=== PATIENT | male | born 1970 | race Caucasian/White ===

== ENCOUNTER → 2020-07-02 11:40 | Outpatient (BNVA) | payer MEDICAID, SELFPAY | PROVIDERS: Family Provider Nurse Practitioner Family; PCP Nurse Practitioner Family; Visit Provider Family Medicine | DX: I10 Essential (primary) hypertension (principal); N52.9 Male erectile dysfunction, unspecified; B19.20 Unspecified viral hepatitis C without hepatic coma | CPT/HCPCS: 80053; 80061; 83036; 85025 ==

== ENCOUNTER → 2020-07-15 08:00 | Outpatient (BNVA) | payer MEDICAID, SELFPAY | PROVIDERS: Family Provider Nurse Practitioner Family; PCP Nurse Practitioner Family; Visit Provider Psychiatry & Neurology Psychiatry | DX: F43.12 Post-traumatic stress disorder, chronic (principal); F31.9 Bipolar disorder, unspecified | CPT/HCPCS: 99213 ==

== ENCOUNTER → 2020-10-22 07:47 | Outpatient (BNVA) | payer MEDICAID, SELFPAY | PROVIDERS: Family Provider Nurse Practitioner Family; PCP Family Medicine Adult Medicine; Visit Provider Psychiatry & Neurology Psychiatry | DX: F31.9 Bipolar disorder, unspecified (principal); F43.12 Post-traumatic stress disorder, chronic | CPT/HCPCS: 99213 ==

== ENCOUNTER 2021-11-03 13:05 | Emergency (ER) | payer BC, MEDICAID, SELFPAY ==
[2021-11-03 13:40] VITALS: BP 163/116; PULSE 100; RESP 16; O2SAT 98; BMI 30.9
--- NOTE | 2021-11-03 13:45 | ED_ITS ---
HPI - Skin/Abscess/Foreign Bdy General: Chief complaint: Skin/Abscess/Foreign Body Stated complaint: Sore on hand and back of head Time Seen by Provider: 11/03/21 13:45 Source: patient Mode of arrival: ambulatory Limitations: no limitations History of Present Illness: HPI narrative: Patient is 51-year-old male who presents to ED today with multiple sores to his bilateral hands and upper extremities that he began noticing a few days ago. He states it started with one sore that appeared as a small pimple and states when he picked at it he then began noticing sores to other areas. He denies a history of staph or MRSA. No new environmental or chemical exposures. MD complaint: lesion Tetanus up to date: yes Location: LUE and RUE Severity: mild Relieving factors: none Exacerbating factors: none Context: none Associated symptoms: Deny chills, fever(s), nausea or vomiting Review of Systems Const: Denies: fever(s), chills, body aches, fatigue or malaise Card: Denies: chest pain Resp: Denies: dyspnea GI: Denies: abdominal pain, nausea or vomiting Musc: Denies: neck pain, back pain, extremity pain or joint pain Skin/Breast: Reports: other (skin sores) Neuro: Denies: numbness in extremities, weakness in extremities or sensory changes [facility] ED PFSH: Medical History (Updated 11/03/21 @ 13:46 by CODY Langston) Hep C w/o coma, chronic Hepatitis C Hypertension Neuropathy Spinal curvature Surgical History H/O knee surgery Micro surg- Left knee Social History Smoking and tobacco status: current every day smoker cigarettes Packs smoked per day: 0.5 Alcohol intake: current Alcohol intake frequency: holidays/special occasions only Household members: significant other Current occupational status: unemployed Physical Exam Const: COMMON NORMALS: no acute distress, average body habitus, patient oriented x3, no limitations and alert GENERAL APPEARANCE: cooperative Resp: COMMON NORMALS: normal respiratory effort and clear to auscultation bilaterally AUSCULTATION: clear to auscultation bilaterally Cardio: COMMON NORMALS: regular rate and regular rhythm RATE: regular rate RHYTHM: regular rhythm Neuro: COMMON NORMALS: patient oriented x3, moves all extremities, no focal motor deficits and no sensory deficits noted SENSORIUM/ORIENTATION: Yes alert Skin: NARRATIVE SKIN EXAM: pt has multiple 1cm early staph appearing abscesses to bilateral UEs and one to scalp; none draining or requiring I&D; no significant cellulitis Course Vital Signs: Vital signs: Vital Signs Pulse Rate 100 11/03/21 13:40 Respiratory Rate 16 11/03/21 13:40 Blood Pressure 163/116 11/03/21 13:40 Pulse Oximetry 98 11/03/21 13:40 Discharge Plan Discharge Patient Disposition: Home Clinical Impression: Staph skin infection Condition: Stable Prescriptions: New Bactrim DS 800-160 mg tablet 2 tab PO BID 7 Days Qty: 28 RF: 0 No Action cyclobenzaprine 10 mg tablet 10 mg PO BID RF: 0 amlodipine [Norvasc] 10 mg tablet 10 mg PO DAILY Qty: 90 RF: 0 propranolol 20 mg tablet 10 mg PO BID PRN (Reason: anxiety) Qty: 60 RF: 2 sildenafil 100 mg tablet 100 mg PO DAILY PRN (Reason: sexual activity) Qty: 20 RF: 12 quetiapine [Seroquel] 50 mg tablet 50 mg PO BID Qty: 60 RF: 2 quetiapine [Seroquel] 400 mg tablet 600 mg PO .HS Qty: 45 RF: 2 prazosin 5 mg capsule 10 mg PO .HS Qty: 30 RF: 2 hydroxyzine HCl 25 mg tablet 25 mg PO BID PRN (Reason: anxiety) Qty: 60 RF: 2 fluoxetine [Prozac] 20 mg capsule 20 mg PO QDAY Qty: 30 RF: 2 Discharge Orders: Discharge ED (Routine); Ordered 11/03/21 Ordered By: Nancy Seals Referrals: Sloan Vieyra MD [Primary Care Provider] - Patient Instructions: Staphylococcus Aureus Infection Coding Level of Care Code 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
== END 2021-11-03 14:18 | disposition home or self-care (01) ==
PROVIDERS: Emergency Provider Physician Assistant; PCP Family Medicine Adult Medicine
DX: L08.9 Local infection of the skin and subcutaneous tissue, unspecified (principal); B95.8 Unspecified staphylococcus as the cause of diseases classified elsewhere; B19.20 Unspecified viral hepatitis C without hepatic coma; I10 Essential (primary) hypertension; F17.210 Nicotine dependence, cigarettes, uncomplicated
CPT/HCPCS: 99282

== ENCOUNTER 2022-07-09 19:03 | Emergency (ER) | payer BC, MEDICAID, SELFPAY ==
[2022-07-09 19:16] VITALS: BP 163/114; PULSE 95; RESP 16; TEMP 36.7; O2SAT 96; BMI 30.8
--- NOTE | 2022-07-09 19:25 | W.ED.EXTPRO ---
HPI - Extremity Problem General: Chief complaint: Extremity Injury, Upper Stated complaint: bite and swelling to Right hand Time Seen by Provider: 07/09/22 19:25 History of Present Illness: 52-year-old male patient comes in with a wound to the right dorsal thumb at the DIP joint that is red and tender. 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 Patient appears nontoxic. Patient appears in mild pain. Patient does not recall his last tetanus shot. Patient reports noticing wound to 3 days ago with increasing redness and tenderness today. Associated symptoms: Deny fever(s) Review of Systems Const: Denies: fever(s) Skin/Breast: Reports: erythema and new lesions [facility] ED PFSH: Medical History (Updated 07/09/22 @ 19:33 by DANE Schrader) Hep C w/o coma, chronic Hepatitis C Hypertension Neuropathy Spinal curvature Surgical History H/O knee surgery Micro surg- Left knee Social History Smoking and tobacco status: current every day smoker cigarettes Packs smoked per day: 0.5 Alcohol intake: current Alcohol intake frequency: holidays/special occasions only Household members: significant other Current occupational status: unemployed Physical Exam Const: COMMON NORMALS: alert HENMT: COMMON NORMALS: normocephalic HEAD & SCALP: normocephalic Neck/C-Spine: COMMON NORMALS: full ROM Resp: COMMON NORMALS: normal respiratory effort and clear to auscultation bilaterally AUSCULTATION: clear to auscultation bilaterally Cardio: COMMON NORMALS: regular rate RATE: regular rate Extremity: RIGHT UPPER EXTREMITY: Yes hand & digits (Superficial abrasion noted to the dorsal right thumb with redness) Right hand and digits: Yes inspection, Yes palpation and Yes ROM exam Neuro: SENSORIUM/ORIENTATION: Yes alert Skin: LESIONS: lesion noted (Right thumb 3 cm erythema) Course Vital Signs: Vital signs: Vital Signs Temperature 98.0 F 07/09/22 19:16 Pulse Rate 95 07/09/22 19:16 Respiratory Rate 16 07/09/22 19:16 Blood Pressure 163/114 07/09/22 19:16 Pulse Oximetry 96 07/09/22 19:16 Oxygen Delivery Pr thod 07/09/22 19:16 MDM - Extremity (Nontraumatic) Medical Decision Making Patient comes in for a wound to the dorsal right thumb with about a 2 to 3 cm area of redness surrounding it. Patient has good range of motion of the thumb. Dorsal cap refill is intact. Wound is tender to touch. Differential diagnosis includes wound infection, local reaction to insect bite, tenosynovitis. No sign of severe illness or injury is noted. Patient appears to have a infected wound. Recommend antibiotics as directed and follow-up with primary care for further evaluation and treatment. Discharge Plan Discharge Patient Disposition: Home Clinical Impression: Abrasion of hand with infection Qualifiers: Encounter type: initial encounter Laterality: right Qualified Code(s): S60.511A - Abrasion of right hand, initial encounter Condition: Stable Prescriptions: New clindamycin HCl 300 mg capsule 300 mg PO QID 7 Days Qty: 28 0RF mupirocin 2 % ointment 1 applic topical BID Qty: 22 0RF No Action cyclobenzaprine 10 mg tablet 10 mg PO BID amlodipine [Norvasc] 10 mg tablet 10 mg PO DAILY Qty: 90 0RF propranolol 20 mg tablet 10 mg PO BID PRN (Reason: anxiety) Qty: 60 2RF sildenafil 100 mg tablet 100 mg PO DAILY PRN (Reason: sexual activity) Qty: 20 12RF Rx Instructions: 1 hour before intercourse on empty stomach. NO NITROGLYCERIN! quetiapine [Seroquel] 50 mg tablet 50 mg PO BID Qty: 60 2RF quetiapine [Seroquel] 400 mg tablet 600 mg PO .HS Qty: 45 2RF prazosin 5 mg capsule 10 mg PO .HS Qty: 30 2RF hydroxyzine HCl 25 mg tablet 25 mg PO BID PRN (Reason: anxiety) Qty: 60 2RF fluoxetine [Prozac] 20 mg capsule 20 mg PO QDAY Qty: 30 2RF Discharge Orders: Discharge ED (Routine); Ordered 07/09/22 Ordered By: Chencho Anne Referrals: Sloan Vieyra MD [Primary Care Provider] - Discharge Diet: Usual diet Discharge Activity: Increase activity as tolerated Patient Instructions: Wound Infection (ED) Activity Restrictions/Additional Instructions: Wash wound twice daily and apply antibiotic ointment until healed. You may use antibiotic ointment to new wounds also. Take oral antibiotic 1 capsule 4 times a day while awake for 7 days. Follow-up with primary care as needed. Return to ER for new concerns or worsening condition. 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
[2022-07-09] MEDS: clindamycin 150 mg Capsule 300 MG PO (19:40)
[2022-07-09] MEDS: tetanus-dipt-pertussis 0.5 mL SDV IM (19:40)
[2022-07-09 20:06] VITALS: BP 159/99; PULSE 92; RESP 18; TEMP 36.6; O2SAT 97
== END 2022-07-09 20:07 | disposition home or self-care (01) ==
LOC: ER 19:39
PROVIDERS: Emergency Provider Nurse Practitioner Family; PCP Family Medicine Adult Medicine
DX: S60.511A Abrasion of right hand, initial encounter (principal); Z86.19 Personal history of other infectious and parasitic diseases; I10 Essential (primary) hypertension; F17.210 Nicotine dependence, cigarettes, uncomplicated; Z23 Encounter for immunization; W22.8XXA Striking against or struck by other objects, initial encounter
CPT/HCPCS: 90471; 90715; 99283

== ENCOUNTER 2022-08-07 19:18 | Emergency (ER) | payer BC, MEDICAID, SELFPAY ==
--- NOTE | 2022-08-07 19:23 | XRR_ITS ---
PROCEDURE INFORMATION: Exam: XR Right Hand Exam date and time: 08/07/2022 7:45 PM Age: 52 years old Clinical indication: Injury or trauma; Fall; Blunt trauma (contusions or hematomas); Hand; Right; Prior surgery TECHNIQUE: Imaging protocol: Radiologic exam of the Right hand. Views: 3 or more views. COMPARISON: No relevant prior studies available. 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 Alignment is normal. No acute fracture. There is a screw in the base of the 5th metacarpal. Soft tissues: Visible soft tissues are unremarkable. XR/XR hand RT min 3V* [id number] IMPRESSION: 1. No acute findings. 2. Incidental findings above.
[2022-08-07 20:00] VITALS: BMI 33.9
--- NOTE | 2022-08-07 20:21 | W.ED.UPPEXIN ---
HPI - Extremity Injury (Upper) General: Stated Complaint: right hand pain Time Seen by Provider: 08/07/22 20:11 Source: patient Mode of arrival: ambulatory Limitations: no limitations History of Present Illness: 52-year-old male states he has had some erythema noted to his right hand today denies any pain denies any injury denies any fever states he is noted some warmth to touch limited to the palm. Associated symptoms: Denies neck pain Review of Systems Const: Denies: fever(s), chills, body aches or change in appetite Eyes: Denies: blurry vision or eye discomfort ENMT: Denies: throat pain or dental pain Card: Denies: chest pain Resp: Denies: dyspnea GI: Denies: abdominal pain, nausea, vomiting or diarrhea : Denies: dysuria Musc: Denies: neck pain or back pain Skin/Breast: Denies: rash Neuro: Denies: headache(s) Psych: Denies: depression Sina/Lymph: Denies: easy bruising All/Imm: Denies: urticaria PFSH ED PFSH: Medical History (Updated 08/07/22 @ 20:22 by Oniel Allen MD) Hep C w/o coma, chronic Hepatitis C Hypertension Neuropathy Spinal curvature Surgical History H/O knee surgery Micro surg- Left knee Social History Smoking and tobacco status: current every day smoker cigarettes Packs smoked per day: 0.5 Alcohol intake: current Alcohol intake frequency: holidays/special occasions only Household members: significant other Current occupational status: unemployed Physical Exam Const: COMMON NORMALS: no acute distress, patient oriented x3 and healthy appearing HENMT: COMMON NORMALS: normocephalic and atraumatic HEAD & SCALP: normocephalic and atraumatic Eye: COMMON NORMALS: Equal, round and reactive pupils present and EOMs intact bilaterally PUPIL: Yes Equal, round and reactive pupils present Neck/C-Spine: COMMON NORMALS: full ROM and supple Chest: COMMONS NORMALS: normal inspection of the chest and normal palpation of entire chest wall Resp: COMMON NORMALS: normal respiratory effort, No retractions, No use of accessory muscles and clear to auscultation bilaterally AUSCULTATION: clear to auscultation bilaterally Cardio: COMMON NORMALS: regular rate, regular rhythm and No murmurs present (Cardio) RATE: regular rate RHYTHM: regular rhythm GI: COMMON NORMALS: Normal to inspection, nondistended, normoactive bowel sounds present, Soft to palpation, non-tender and no masses PALPATION: Yes Soft to palpation Extremity: COMMON NORMALS: full ROM NARRATIVE EXTREMITY EXAM: Slight erythema to the palm of the left hand no abscess no pain in the fingers Neuro: COMMON NORMALS: patient oriented x3, moves all extremities and no focal motor deficits Psych: COMMON NORMALS: mental status grossly normal, Normal thought process present and cooperative THOUGHT PROCESS: Normal thought process present Skin: COMMON NORMALS: no rashes or lesions noted and no wounds GENERAL SKIN EXAM: no rashes or lesions noted MDM - Extremity Injury (Upper) Medical Decision Making Patient presents with slight cellulitis to his hand no signs of tensor synovitis x-ray is normal we will start him on antibiotic he is to follow-up PCP and return if worsening. Lab Data Radiology Impressions Hand X-Ray 08/07/22 19:23 IMPRESSION: 1. No acute findings. 2. Incidental findings above. Discharge Plan Discharge Patient Disposition: Home Clinical Impression: Cellulitis Qualifiers: Site of cellulitis: extremity Site of cellulitis of extremity: upper extremity Laterality: right Qualified Code(s): L03.113 - Cellulitis of right upper limb Condition: Stable Prescriptions: New clindamycin HCl 300 mg capsule 300 mg PO TID 7 Days Qty: 21 0RF No Action cyclobenzaprine 10 mg tablet 10 mg PO BID amlodipine [Norvasc] 10 mg tablet 10 mg PO DAILY Qty: 90 0RF propranolol 20 mg tablet 10 mg PO BID PRN (Reason: anxiety) Qty: 60 2RF sildenafil 100 mg tablet 100 mg PO DAILY PRN (Reason: sexual activity) Qty: 20 12RF Rx Instructions: 1 hour before intercourse on empty stomach. NO NITROGLYCERIN! quetiapine [Seroquel] 50 mg tablet 50 mg PO BID Qty: 60 2RF quetiapine [Seroquel] 400 mg tablet 600 mg PO .HS Qty: 45 2RF prazosin 5 mg capsule 10 mg PO .HS Qty: 30 2RF hydroxyzine HCl 25 mg tablet 25 mg PO BID PRN (Reason: anxiety) Qty: 60 2RF fluoxetine [Prozac] 20 mg capsule 20 mg PO QDAY Qty: 30 2RF mupirocin 2 % ointment 1 applic topical BID Qty: 22 0RF Discharge Orders: Discharge ED (Routine); Ordered 08/07/22 Ordered By: Oniel Allen Referrals: Kasia Zelaya APN [Primary Care Provider] - 1-3 days Discharge Diet: Advance as tolerated Discharge Activity: Resume usual activity Patient Instructions: Cellulitis (ED) Coding Level of Care Code 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
[2022-08-07] MEDS: clindamycin 150 mg Capsule 300 MG PO (20:36)
[2022-08-07 21:01] VITALS: BP 142/90; PULSE 90; RESP 16; O2SAT 95
== END 2022-08-07 20:39 | disposition home or self-care (01) ==
PROVIDERS: Emergency Provider Emergency Medicine; PCP Nurse Practitioner Family
DX: L03.113 Cellulitis of right upper limb (principal); I10 Essential (primary) hypertension; F17.210 Nicotine dependence, cigarettes, uncomplicated
CPT/HCPCS: 73130; 99283

== ENCOUNTER 2023-02-02 12:29 | Emergency (ER) | payer BC, MEDICAID, SELFPAY ==
[2023-02-02 12:42] VITALS: BP 163/116; PULSE 95; RESP 20; TEMP 36.9; O2SAT 100
--- NOTE | 2023-02-02 13:01 | CTR_ITS ---
PROCEDURE INFORMATION: Exam: CT Abdomen And Pelvis With Contrast Exam date and time: 02/02/2023 1:56 PM Age: 52 years old Clinical indication: Abdominal pain; Localized; Right lower quadrant (rlq); Additional info: Rlq pain TECHNIQUE: Imaging protocol: Computed tomography of the abdomen and pelvis with contrast. Radiation optimization: All CT scans at this facility use at least one of these dose optimization techniques: automated exposure control; mA and/or kV adjustment per patient size (includes targeted exams where dose is matched to clinical indication); or iterative reconstruction. Contrast material: OMNI 350; Contrast volume: 100 ml; Contrast route: INTRAVENOUS (IV); REPORTING DATA: Count of CT and Cardiac NM exams in prior 12 months: This patient has received 0 known CTs and 0 known cardiac nuclear medicine studies in the 12 months prior to the current study. COMPARISON: CR XR abdomen min 2V [id number] 05/11/2016 4:18 PM RADIATION DOSE METRICS: Total DLP (mGy-cm): 1037 FINDINGS: Lungs: A lobulated 9.8 x 7.6 mm noncalcified pulmonary nodule is noted in the medial basilar segment of the left lower lobe (LOC 40). A 4.7 mm noncalcified pulmonary nodule is noted in the anterior basilar segment of the right lower lobe (LOC 20). Liver: Normal. No mass. Gallbladder and bile ducts: No extrahepatic biliary ductal dilatation or calculus. Gallbladder luminal distention is present measuring 5.5 cm. No intraluminal calculus identified. No wall thickening or pericholecystic fluid. Pancreas: Unremarkable pancreas. Spleen: The spleen demonstrates several small calcifications consistent with healed granulomatous disease. Adrenal glands: Normal. No mass. Kidneys and ureters: Bilateral renal upper pole cortical scarring. Left renal 21 mm benign cyst. Stomach and bowel: Moderately increased stool noted in the ascending colon. No evidence of bowel obstruction. Appendix: The vermiform appendix is normal. Intraperitoneal space: No free air. No significant fluid collection. Vasculature: Calcified phleboliths are present in the lower pelvis bilaterally. Mild aortic atherosclerotic calcification without aneurysm. The iliac arteries show mild bilateral atherosclerotic calcifications without evidence of aneurysm. Lymph nodes: No enlarged lymph nodes. Urinary bladder: Unremarkable as visualized. Reproductive: Unremarkable as visualized. Bones/joints: Unremarkable. No acute fracture. Soft tissues: A tiny paraumbilical hernia containing only abdominal fat is noted. CT/CT abdomen pelvis w con* [id number] IMPRESSION: 1. Moderate right abdominal colonic constipation. 2. Bilateral renal upper pole cortical scarring. 3. Left renal benign cyst. No follow-up imaging is recommended. 4. Distended gallbladder. Gallbladder sonography may be helpful if clinically indicated. 5. Noncalcified left lower lobe pulmonary nodule. Pulmonary neoplasia not excluded. Comparison with prior studies, if available, recommended. Three-month followup chest CT, PET/CT, or percutaneous needle biopsy recommended. (Ai et al., Fleischner Society, 2017). 6. Noncalcified right lower lobe pulmonary nodule. For patients at low risk (minimal or absent history of smoking and of other known risk factors), no routine follow-up is indicated. For patients at high risk (history of smoking or of other known risk factors), consider optional CT at 12 months. (Ai et al., Fleischner Society, 2017). COMMENTS: Consistent with the [employer]'s Incidental Findings Committee white paper (J Am Dave Radiol 2018): Any incidental renal lesion less than 1 cm or classified as too small to characterize, or any incidental cystic renal lesion characterized as simple-appearing, is likely benign. No follow-up imaging is recommended for these lesions per consensus recommendations based on imaging criteria.
--- NOTE | 2023-02-02 13:02 | ED_ITS ---
HPI - Abdominal Pain General: Chief Complaint: Abdominal Pain Stated Complaint: Right side Abd pain, and low back pain Time Seen by Provider: 02/02/23 12:57 Source: patient Mode of arrival: wheelchair Limitations: no limitations History of Present Illness: Patient is a 52-year-old male presents to ED today with complaints of significant right lower quadrant abdominal discomfort. He states pain initially started 2 to 3 days ago and has progressively worsened since onset. He denies nausea, vomiting, diarrhea, changes in bowel movements. He denies fevers or chills. He does not complain of any dysuria or hematuria but does state I am pissing like a race horse . Patient denies previous abdominal surgeries. No history of nephro or ureterolithiasis. He states pain does seem to radiate slightly into his back. No flank pain. MD elicited complaint: abdominal pain Pertinent past history: none Onset (ago): day(s) Pain Consistency: constant Location: RLQ Severity: severe Quality: stabbing and sharp Radiation: back Migration to: no migration Exacerbating factors: movement Relieving factors: nothing Associated Symptoms: Reports no associated symptoms; Denies change in bowel habits, chills, diarrhea, dysuria, fever(s), nausea and vomiting Review of Systems Const: Denies: fever(s), chills, body aches, fatigue or malaise Card: Denies: chest pain Resp: Denies: dyspnea GI: Reports: abdominal pain; Denies: nausea, vomiting, diarrhea or change in bowel habits : Reports: urinary frequency; Denies: flank pain, difficulty urinating, dysuria, urinary urgency, urinary hesitancy, genital pain, testicular pain or scrotal swelling Musc: Denies: neck pain, extremity pain, extremity swelling, joint pain or joint swelling Skin/Breast: Denies: rash Neuro: Denies: headache(s), numbness in extremities, weakness in extremities, sensory changes or dizziness PFS ED PFSH: Medical History (Updated 02/02/23 @ 15:13 by CODY Langston) Hep C w/o coma, chronic Hepatitis C Hypertension Neuropathy Spinal curvature Surgical History H/O knee surgery Micro surg- Left knee Social History Smoking and tobacco status: current every day smoker cigarettes Packs smoked per day: 0.5 Alcohol intake: current Alcohol intake frequency: holidays/special occasions only Household members: significant other Current occupational status: unemployed Physical Exam Const: COMMON NORMALS: patient oriented x3, no limitations, alert and well nourished GENERAL APPEARANCE: cooperative and in distress (appears to be in signficant discomfort) NUTRITIONAL APPEARANCE: overweight ORIENTATION/CONSCIOUSNESS: Yes awake, Yes oriented to person, Yes oriented to place and Yes oriented to time HENMT: COMMON NORMALS: normocephalic and atraumatic HEAD & SCALP: normal to inspection, normocephalic and atraumatic Eye: COMMON NORMALS: no scleral icterus Resp: COMMON NORMALS: normal respiratory effort and clear to auscultation bilaterally EFFORT & INSPECTION: Yes tachypneic (secondary to pain I believe) AUSCULTATION: clear to auscultation bilaterally Cardio: COMMON NORMALS: regular rate and regular rhythm RATE: regular rate RHYTHM: regular rhythm GI: COMMON NORMALS: Normal to inspection, nondistended, normoactive bowel sounds present, Soft to palpation, No hepatosplenomegaly present and no masses INSPECTION: Yes normal to inspection AUSCULTATION: Yes normoactive bowel sounds PALPATION: Yes Soft to palpation, Yes Tenderness to palpation present (GI) Details: RLQ, Yes Guarding due to palpation present (GI) (at RLQ), No Rigid due to palpation, Yes No hepatosplenomegaly present and Yes Other GI palpation findings present (positive Psoas/Obturator; negative heel tap) : COMMON NORMALS: Yes no CVA tenderness BLADDER/KIDNEY EXAM: Yes no CVA tenderness Back/Pelvis: COMMON NORMALS: no CVA tenderness, thoracic and lumbar spine normal to inspection, no thoracic nor lumbar tenderness and thoraco-lumbar ROM normal Extremity: COMMON NORMALS: normal to inspection, capillary refill normal, no clubbing, cyanosis or edema, no calf tenderness and no pedal edema NARRATIVE EXTREMITY EXAM: distal pulses equal/normal bilaterally; no coolness/pallor to LEs; sensory normal GENERAL: Yes normal exam except as noted Neuro: RIVAS COMA SCALE: document GCS findings [place] coma scale eye opening: Spontaneous [place] coma scale verbal response: Orientated [place] coma scale motor response: Obey commands [place] coma scale total score: 15 COMMON NORMALS: patient oriented x3 SENSORIUM/ORIENTATION: Yes alert, Yes oriented to person, Yes oriented to place and Yes oriented to time Skin: COMMON NORMALS: no rashes or lesions noted GENERAL SKIN EXAM: no rashes or lesions noted Course Vital Signs: Vital signs: Vital Signs Temperature 98.5 F 02/02/23 12:42 Pulse Rate 80 02/02/23 14:57 Respiratory Rate 22 H 02/02/23 13:22 Blood Pressure 171/109 02/02/23 14:57 Pulse Oximetry 97 02/02/23 14:57 Oxygen Delivery Me thod 02/02/23 14:57 MDM - Abdominal Pain Medical Decision Making Patient is a 52-year-old male who presents to ED today with fairly significant RLQ abdominal pain over the past 2 to 3 days. Pain vastly improved with IV pain/nausea medications and lying down. Vital signs are stable apart from hypertension. Patient states he has chronic untreated hypertension with systolics running anywhere from 160s to 190s. I will place him on lisinopril for this and recommend to keep a blood pressure log and follow-up with primary care so they can titrate upwards based on response. Work-up today is essentially unremarkable. He has a normal white count. His chemistry panel is normal. UA is clear. CT scan showing incidental findings of lung nodules. He does have a distended gallbladder however patient has no RUQ pain and LFTs are all normal. Moderate right abdominal colonic constipation certainly could cause some discomfort although his presentation seemed out of proportion with this finding. Upon re-examination patient is resting comfortably. Will treat pain/nausea at home. Prompt follow-up with primary care recommended. Strict return to ED precautions given. Lab Data 02/02/23 13:00 02/02/23 13:00 Labs/Radiology: Radiology Impressions Abdomen/Pelvis CT 02/02/23 13:01 IMPRESSION: 1. Moderate right abdominal colonic constipation. 2. Bilateral renal upper pole cortical scarring. 3. Left renal benign cyst. No follow-up imaging is recommended. 4. Distended gallbladder. Gallbladder sonography may be helpful if clinically indicated. 5. Noncalcified left lower lobe pulmonary nodule. Pulmonary neoplasia not excluded. Comparison with prior studies, if available, recommended. Three-month followup chest CT, PET/CT, or percutaneous needle biopsy recommended. (Ai et al., Fleischner Society, 2017). 6. Noncalcified right lower lobe pulmonary nodule. For patients at low risk (minimal or absent history of smoking and of other known risk factors), no routine follow-up is indicated. For patients at high risk (history of smoking or of other known risk factors), consider optional CT at 12 months. (Ai et al., Fleischner Society, 2017). COMMENTS: Consistent with the [employer]'s Incidental Findings Committee white paper (J Am Dave Radiol 2018): Any incidental renal lesion less than 1 cm or classified as too small to characterize, or any incidental cystic renal lesion characterized as simple-appearing, is likely benign. No follow-up imaging is recommended for these lesions per consensus recommendations based on imaging criteria. Laboratory Results WBC 7.4 10^3/uL (4.0-10.0) 02/02/23 13:00 RBC 5.33 10^6/uL (4.1-5.3) H 02/02/23 13:00 Hgb 16.0 g/dL (11.7-16.6) 02/02/23 13:00 Hct 48.8 % (42.0-52.0) 02/02/23 13:00 MCV 91.6 fl (80-94) 02/02/23 13:00 MCH 30.0 pg (28.0-34.0) 02/02/23 13:00 MCHC 32.8 g/dL (30.0-36.0) 02/02/23 13:00 RDW 12.6 % (12.1-15.1) 02/02/23 13:00 Plt Count 265 10^3/cmm (130-400) 02/02/23 13:00 MPV 9.3 fL (7.4-10.4) 02/02/23 13:00 Neut % (Auto) 43.9 % 02/02/23 13:00 Lymph % (Auto) 41.9 % 02/02/23 13:00 [place] % (Auto) 10.1 % 02/02/23 13:00 Eos % (Auto) 2.8 % 02/02/23 13:00 Baso % (Auto) 0.8 % 02/02/23 13:00 Neut # (Auto) 3.26 10^3/uL (1.8-7.7) 02/02/23 13:00 Lymph # (Auto) 3.1 10^3/uL (0.8-4.8) 02/02/23 13:00 [place] # (Auto) 0.8 10^3/uL (0.2-0.9) 02/02/23 13:00 Eos # (Auto) 0.2 10^3/uL (0.0-0.8) 02/02/23 13:00 Baso # (Auto) 0.1 10^3/uL (0.0-0.1) 02/02/23 13:00 Nucleated RBC % (auto) 0 % 02/02/23 13:00 Nucleated RBCs # 0.0 /100WBC 02/02/23 13:00 Sodium 136 mmol/L (136-145) 02/02/23 13:00 Potassium 4.0 mmol/L (3.5-5.1) 02/02/23 13:00 Chloride 100 mmol/L (98-107) 02/02/23 13:00 Carbon Dioxide 24 mmol/L (22-29) 02/02/23 13:00 Anion Gap 16.0 (5-19) 02/02/23 13:00 BUN 10 mg/dL (6-20) 02/02/23 13:00 Creatinine 0.9 mg/dL (0.7-1.2) 02/02/23 13:00 GFR Calculation 87.9 mL/min (90-130) L 02/02/23 13:00 Glucose 102 mg/dL (65-115) 02/02/23 13:00 Calculated Osmolality 281 mOsm/kg (285-295) L 02/02/23 13:00 Calcium 9.3 mg/dL (8.5-10.5) 02/02/23 13:00 Total Bilirubin 0.3 mg/dL (0.15-1.2) 02/02/23 13:00 AST 28 U/L (0-40) 02/02/23 13:00 ALT 27 U/L (0-41) 02/02/23 13:00 Alkaline Phosphatase 117 U/L (40-130) 02/02/23 13:00 Total Protein 7.6 g/dL (6.6-8.7) 02/02/23 13:00 Albumin 4.0 g/dL (3.5-5.2) 02/02/23 13:00 Globulin 3.6 g/dL (1.3-4.6) 02/02/23 13:00 Lipase 17 U/L (13-60) 02/02/23 13:00 Urine Color Yellow (Yellow) 02/02/23 13:00 Urine Appearance Clear (CLEAR) 02/02/23 13:00 Urine pH 7 (5-7) 02/02/23 13:00 Ur Specific [place] 1.010 (1.005-1.030) 02/02/23 13:00 Urine Protein Neg (Negative) 02/02/23 13:00 Urine Glucose (UA) Norm (Normal) 02/02/23 13:00 Urine Ketones Negative (Negative) 02/02/23 13:00 Urine Blood Neg (Negative) 02/02/23 13:00 Urine Nitrate Negative (Negative) 02/02/23 13:00 Urine Bilirubin Neg (Negative) 02/02/23 13:00 Urine Urobilinogen Norm mg/dL (Negative) 02/02/23 13:00 Ur Leukocyte Esterase Negative (Negative) 02/02/23 13:00 Discharge Plan Discharge Patient Disposition: Home Clinical Impression: Hypertension, Right lower quadrant abdominal pain of unknown etiology Condition: Stable Prescriptions: New hydrocodone-acetaminophen 5-325 mg tablet 1 tab PO Q6H PRN (Reason: pain) Qty: 14 0RF ondansetron 4 mg tablet,disintegrating 4 mg PO Q8H PRN (Reason: nausea and vomiting) Qty: 14 0RF lisinopril 10 mg tablet 10 mg PO DAILY Qty: 30 0RF No Action ibuprofen 200 mg Tablet 1,200 mg PO Q6H PRN (Reason: Pain) Discharge Orders: Discharge ED (Routine); Ordered 02/02/23 Ordered By: Nancy Seals Referrals: Zelaya,YUSUF Pedroza [Primary Care Provider] - Patient Instructions: Abdominal Pain (ED), Opioid Safety, Pain Management Activity Restrictions/Additional Instructions: As we discussed your CT scan showed multiple lung nodules that you will need follow-up for through primary care. Radiologist did comment on moderate constipation. We have spoke about doing MiraLAX and Colace to help with this. We did not find a definitive cause for your right lower quadrant abdominal pain. You need to return to the emergency department for worsening or severe abdom inal pain, repetitive episodes of vomiting, inability to have a bowel movement, fevers, severe back pain, color/temp changes to your lower extremities or any other concerns you may have. As we discussed I will put you on some blood pressure medications for your chronic hypertension. You need to keep a blood pressure log and follow-up with primary care so they can titrate these medications based on response. Coding Level of Care Code ED Java Performance Engineer for Raymond Aguirre
[2023-02-02 13:13] LABS: Basophils # 0.1 10^3/uL (0.0-0.1); Basophils % 0.8 %; Eosinophils # 0.2 10^3/uL (0.0-0.8); Eosinophils % 2.8 %; Hematocrit 48.8 % (42.0-52.0); Lymphocytes # 3.1 10^3/uL (0.8-4.8); Lymphocytes % 41.9 %; Mean Corpuscular HGB Conc 32.8 g/dL (30.0-36.0); Mean Corpuscular Volume 91.6 fl (80-94); Mean Platelet Volume 9.3 fL (7.4-10.4); Monocytes # 0.8 10^3/uL (0.2-0.9); Monocytes % 10.1 %; Neutrophils # 3.26 10^3/uL (1.8-7.7); Neutrophils % 43.9 %; Nucleated Red Blood Cells % 0 %; Platelet Count 265 10^3/cmm (130-400); Red Blood Count 5.33 10^6/uL (4.1-5.3); Red Cell Distribution Width 12.6 % (12.1-15.1); White Blood Count 7.4 10^3/uL (4.0-10.0)
[2023-02-02] MEDS: ondansetron 2 mg/ML SDV 2 mL 4 MG IVP (13:21)
[2023-02-02 13:22] VITALS: RESP 22; O2SAT 100
[2023-02-02] MEDS: HYDROmorphone 1 mg/mL INJ 1 mL IVP (13:22)
[2023-02-02 13:28] VITALS: BP 117/96; PULSE 93; O2SAT 99
[2023-02-02 13:35] LABS: Alanine Aminotransferase 27 U/L (0-41); Alkaline Phosphatase 117 U/L (40-130); Aspartate Amino Transferase 28 U/L (0-40); Blood Urea Nitrogen 10 mg/dL (6-20); Calcium 9.3 mg/dL (8.5-10.5); Carbon Dioxide 24 mmol/L (22-29); Chloride 100 mmol/L (98-107); Globulin 3.6 g/dL (1.3-4.6); Glomerular Filtration Rate 87.9 mL/min (90-130); Glucose 102 mg/dL (65-115); Lipase 17 U/L (13-60); Osmolality Calculated 281 mOsm/kg (285-295); Sodium 136 mmol/L (136-145); Total Bilirubin 0.3 mg/dL (0.15-1.2); Total Protein 7.6 g/dL (6.6-8.7)
[2023-02-02 13:38] LABS: Add Urine Microscopic? NO; Charge for UA Resulting for Rev
[2023-02-02] MEDS: iohexol 350 mg/mL 500 mL Btl (per mL) IV (13:59)
[2023-02-02 14:16] LABS: Bilirubin Urine Neg (Negative); Blood Urine Neg (Negative); Glucose Urine UA Norm (Normal); Ketones Urine Negative (Negative); Leukocyte Esterase Urine Negative (Negative); Nitrate Urine Negative (Negative); Protein Urine Neg (Negative); Urine Appearance Clear (CLEAR); Urine Color Yellow (Yellow); Urobilinogen Urine Norm (Negative); pH Urine 7 (5-7)
--- NOTE | 2023-02-02 14:23 | PC.PHAR ---
PT STATES HE TAKES NO RX MEDICATIONS-PT STATES ONLY TAKES IBUPROFEN PRN
[2023-02-02 14:57] VITALS: BP 171/109; PULSE 80; O2SAT 97
== END 2023-02-02 15:42 | disposition home or self-care (01) ==
PROVIDERS: Emergency Provider Physician Assistant; PCP Nurse Practitioner Family
DX: R10.31 Right lower quadrant pain (principal); I10 Essential (primary) hypertension; K59.00 Constipation, unspecified; Z86.19 Personal history of other infectious and parasitic diseases; F17.210 Nicotine dependence, cigarettes, uncomplicated
CPT/HCPCS: 74177; 80053; 81003; 83690; 85025; 96374; 96375; 99285; J1170; J2405; Q9967

== ENCOUNTER 2023-09-01 18:14 | Emergency (ER) | payer BC, MEDICAID, SELFPAY ==
[2023-09-01 18:19] VITALS: BP 224/125; PULSE 104; RESP 18; TEMP 36.7; O2SAT 100; BMI 30.4
--- NOTE | 2023-09-01 18:30 | ED_ITS ---
HPI - General Adult General: Chief complaint: Psychiatric Symptoms Stated complaint: 96 hr hold Time Seen by Provider: 09/01/23 18:15 Source: patient and police Limitations: no limitations History of Present Illness: 53-year-old male is here with police under 96-hour hold he states that he got an argument with his mother titus and she called police to feel a 96-hour hold on him. He denies being suicidal or homicidal please states he has not made any homicidal or suicidal statements as well. Associated symptoms: Deny chest pain, dyspnea, headache(s), nausea, rash or vomiting Review of Systems Const: Denies: fever(s), chills, body aches or change in appetite ENMT: Denies: throat pain or dental pain Card: Denies: chest pain Resp: Denies: dyspnea GI: Denies: abdominal pain, nausea, vomiting or diarrhea : Denies: dysuria Musc: Denies: neck pain or back pain Skin/Breast: Denies: rash Neuro: Denies: headache(s) Psych: Reports: irritability; Denies: depression, suicidal ideation or homicidal ideation PFS ED PFSH: Medical History (Updated 09/01/23 @ 18:50 by Oniel Allen MD) Hep C w/o coma, chronic Hepatitis C Hypertension Neuropathy Spinal curvature Surgical History H/O knee surgery Micro surg- Left knee Social History Smoking and tobacco/nicotine status: current every day tobacco/nicotine user cigarettes Packs smoked per day: 0.5 Alcohol intake: current Alcohol intake frequency: holidays/special occasions only Substance/Drug Use: former Household members: significant other Current occupational status: unemployed Physical Exam Const: COMMON NORMALS: no acute distress, patient oriented x3 and healthy appearing HENMT: COMMON NORMALS: normocephalic and atraumatic HEAD & SCALP: normocephalic and atraumatic Neck/C-Spine: COMMON NORMALS: full ROM and supple Chest: COMMONS NORMALS: normal inspection of the chest Resp: COMMON NORMALS: normal respiratory effort Cardio: COMMON NORMALS: regular rate, regular rhythm and No murmurs present (Cardio) RATE: regular rate RHYTHM: regular rhythm Extremity: COMMON NORMALS: normal to inspection and full ROM Neuro: COMMON NORMALS: patient oriented x3, moves all extremities and no focal motor deficits Psych: COMMON NORMALS: mental status grossly normal, Normal thought process present and cooperative THOUGHT PROCESS: Normal thought process present Skin: COMMON NORMALS: no rashes or lesions noted and no wounds GENERAL SKIN EXAM: no rashes or lesions noted Course Vital Signs: Vital signs: Vital Signs Temperature 98.1 F 09/01/23 18:19 Pulse Rate 104 H 09/01/23 18:19 Respiratory Rate 18 09/01/23 18:19 Blood Pressure 224/125 09/01/23 18:19 Pulse Oximetry 100 09/01/23 18:19 Oxygen Delivery Me thod Room Air 09/01/23 18:19 MDM - General Adult Medical Decision Making Patient presents here with an angry outburst he is not suicidal or homicidal I did free through his 96-hour hold there are no statements and there that he is being homicidal or suicidal that he is just been irritable I did have him evaluated by Dr. Becerril as well and Jone agrees that he is not a threat to himself or others and will not hold against his will and he is stable for discharge and will rescind the 96-hour No radiology studies performed this visit Discharge Plan Discharge Patient Disposition: Home Clinical Impression: Outbursts of anger Condition: Stable Prescriptions: No Action ibuprofen 200 mg Tablet 1,200 mg PO Q6H PRN (Reason: Pain) hydrocodone-acetaminophen 5-325 mg tablet 1 tab PO Q6H PRN (Reason: pain) Qty: 14 0RF ondansetron 4 mg tablet,disintegrating 4 mg PO Q8H PRN (Reason: nausea and vomiting) Qty: 14 0RF lisinopril 10 mg tablet 10 mg PO DAILY Qty: 30 0RF Discharge Orders: Discharge ED (Routine); Ordered 09/01/23 Ordered By: Oniel Allen Referrals: Zelaya,YUSUF Pedroza [Referring] - 1-3 days Discharge Diet: Advance as tolerated Discharge Activity: Resume usual activity Coding Level of Care Code ED Senior Programmer for Raymond Aguirre
== END 2023-09-01 19:02 | disposition home or self-care (01) ==
PROVIDERS: Emergency Provider Emergency Medicine
DX: R45.4 Irritability and anger (principal); Z86.19 Personal history of other infectious and parasitic diseases; I10 Essential (primary) hypertension; F17.210 Nicotine dependence, cigarettes, uncomplicated
CPT/HCPCS: 99283

== ENCOUNTER 2025-10-18 17:19 | Emergency (ER) | payer MEDICAID, SELFPAY ==
--- NOTE | 2025-10-18 17:18 | XRR_ITS ---
PROCEDURE INFORMATION: Exam: XR Chest Exam date and time: 10/18/2025 5:38 PM Age: 55 years old Clinical indication: Shortness of breath; Additional info: CVA; SOB TECHNIQUE: Imaging protocol: Radiologic exam of the chest. Views: 1 view. COMPARISON: CT abdomen pelvis w con* [id number] 02/02/2023 1:56 PM FINDINGS: Lungs: No focal consolidation. Pleural spaces: No evidence of pneumothorax. No evidence of pleural effusion. Heart/Mediastinum: Cardiomediastinal silhouette is within normal limits. Bones/joints: No evidence of acute osseous abnormality. XR/XR chest 1V portable [id number] IMPRESSION: 1. No acute cardiopulmonary abnormality. If persistently symptomatic, consider correlation with CT.
--- NOTE | 2025-10-18 17:18 | CTR_ITS ---
PROCEDURE INFORMATION: Exam: CT Head Without Contrast Exam date and time: 10/18/2025 5:22 PM Age: 55 years old Clinical indication: Stroke-like symptoms; Left upper extremity numbness/paresthesia; Additional info: Symptoms of acute stroke TECHNIQUE: Imaging protocol: Computed tomography of the head without contrast. Radiation optimization: All CT scans at this facility use at least one of these dose optimization techniques: automated exposure control; mA and/or kV adjustment per patient size (includes targeted exams where dose is matched to clinical indication); or iterative reconstruction. Other technique: STROKE PROTOCOL was implemented. COMPARISON: MR cervical spin wo con* [id number] 12/20/2018 3:17 PM RADIATION DOSE METRICS: Total DLP (mGy-cm): 1145.88 FINDINGS: Brain: No evidence of intra-axial or extra-axial hemorrhage. No mass effect or midline shift. Small focus of right frontal encephalomalacia. Pena-white differentiation is otherwise maintained. Basilar cisterns are patent. Cerebral ventricles: No hydrocephalus. Paranasal sinuses: The visualized paranasal sinuses are well aerated. Mastoid air cells: The visualized mastoids and middle ears are clear. Bones: Calvarium is intact. No evidence of acute fracture. Soft tissues: No gross soft tissue abnormality. Postsurgical changes of the left orbit. CT/CT head thrombolytic [id number] IMPRESSION: 1. No acute intracranial abnormality. ASSESSMENT: ASPECTS ([place] Stroke Program Early CT Score) is 10.
[2025-10-18 17:20] VITALS: BP 143/100; PULSE 86; RESP 17; TEMP 36.8; O2SAT 97; BMI 29.8
--- NOTE | 2025-10-18 17:30 | ECG_ITS ---
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 Measurements Intervals [place] Rate: 81 P: 3 ID: [id number] QRS: 11 QRSD: 102 T: 139 QT: 410 QTc: 478 Interpretive Statements SINUS RHYTHM LEFT VENTRICULAR HYPERTROPHY AND ST-T CHANGE [VOLTAGE CRITERIA PLUS ST/T ABNORMALITY] Compared to ECG 08/26/2018 08:06:07 Left ventricular hypertrophy now present ST (T wave) deviation now present Electronically Signed On 10-18-2025 18:43:40 BUZZSAW OPERATOR by James Nuñez M.D. [email or web address]
--- NOTE | 2025-10-18 17:33 | ED_ITS ---
HPI - Neuro Symptoms/Deficit 2 General: Chief Complaint: Neuro Symptoms/Deficit Stated Complaint: slurred speech - left sided deficits Time Seen by Provider: 10/18/25 17:20 Source: patient and EMS Mode of arrival: EMS Limitations: no limitations History of Present Illness: 55-year-old male states that he was help ing a friend with his lawnmower today and at 1600 he had left-sided weakness and slurred speech. States this lasted roughly 45 minutes and has since completely resolved he is back to his baseline. He denies having any chest pain denies any headache. No history of CVA or TIA in the past. He denies any recent illnesses. Related Data Home Medications ?Medication ?Instructions ?Recorded ?Confirmed ibuprofen 200 mg tablet 1,200 mg PO Q6H PRN Pain 02/02/23 Previous Rx's ?Medication ?Instructions ?Recorded hydrocodone 5 mg-acetaminophen 325 1 tab PO Q6H PRN pa in #14 tabs 02/02/23 mg tablet lisinopril 10 mg tablet 10 mg PO DAILY #30 tabs 01/13 01/06 ondansetron 4 mg disintegrating 4 mg PO Q8H PRN nausea and 02/02/23 tablet vomiting #14 tabs aspirin 81 mg capsule 81 mg PO DAILY #30 caps 04/07 atorvastatin 80 mg tablet (Lipitor) 80 mg PO DAILY #30 tabs 10/18/25 Allergies Allergy/AdvReac Type Severity Reaction Status Date / Time naproxen Allergy Severe Anaphylaxis Verified 09/01/23 18:31 Penicillins Allergy Unknown Verified 09/01/23 18:31 [facility] ED 2 PFSH: Medical History Hepatitis C Hypertension Spinal curvature Neuropathy Hep C w/o coma, chronic Surgical History H/O knee surgery Micro surg- Left knee Social History Smoking and tobacco/nicotine status: current every day tobacco/nicotine user cigarettes Packs smoked per day: 0.5 Alcohol intake: current Alcohol intake frequency: holidays/special occasions only Substance/Drug Use: former Household members: significant other Current occupational status: unemployed NIH stroke score 2 NIHSS: Level Of Consciousness - 1a: 0 Level Of Consciousness Questions - 1b: Both Correct Level Of Consciousness Commands - 1c: Both Correct Best Gaze - 2: Normal Visual Carney - 3: No Visual Loss Facial Palsy - 4: N ormal Motor Arm Right - 5: No Drift Motor Arm Left - 5: No Drift Motor Leg Right - 6: No Drift Motor Leg Left - 6: No Drift Limb Ataxia - 7: A bsent Sensory - 8: Normal Best Language - 9: No Aphasia Dysarthia - 10: Normal Extinction And Inattention - 11: 0 Score: Total Score: 0 Physical Exam 2 Const: COMMON NORMALS: no acute distress, patient oriented x3 and healthy appearing HENMT: COMMON NORMALS: normocephalic and atraumatic HEAD & SCALP: n ormocephalic and atraumatic Neck/C-Spine: COMMON NORMALS: full ROM and supple Chest: COMMONS NORMALS: normal inspection of the chest Resp: COMMON NORMALS: normal respiratory effort, No retractions, No use of accessory muscles and clear to auscultation bilaterally AUSCULTATION: clear to auscultation bilaterally Cardio: COMMON NORMALS: regular rate, regular rhythm and No murmurs present (Cardio) RATE: regular rate RHYTHM: regular rhythm Extremity: COMMON NORMALS: normal to inspection and full ROM Neuro: COMMON NORMALS: patient oriented x3, moves all extremities and no focal motor deficits CRANIAL NERVES: Yes CN normal except as noted SPEECH: s peech normal MOTOR EXAM: 5/5 motor strength present throughout Psych: COMMON NORMALS: mental status grossly normal, Normal thought process present and cooperative THOUGHT PROCESS: Normal thought process present Skin: COMMON NORMALS: no rashes or lesions noted and no wounds GENERAL SKIN EXAM: no rashes or lesions noted Course 2 Vital Signs: Vital signs: Vital Signs Temperature 98.2 F 10/18/25 17:20 Pulse Rate 86 10/18/25 17:20 Respiratory Rate 17 10/18/25 17:20 Blood Pressure 143/100 10/18/25 17:20 Pulse Oximetry 97 10/18/25 17:20 Oxygen Delivery Me thod Room Air 10/18/25 17:20 MDM - Neuro Symptoms/Deficit Medical Decision Making 55-year-old male who presented here having left-sided weakness started 1600 that resolved after 40 minutes. Differential includes TIA, CVA, intracerebral hemorrhage. Head CT here was normal no signs of hemorrhage. He did not have a headache his NIH here is 0 his symptoms have completely resolved. I did inform patient that he likely had a TIA I strongly recommended admission for further workup. Patient states that he has dogs at home and no one to care for me is not able to stay. I informed him that he needs to get outpatient follow-up with PCP or neurology as he still needs an echo likely carotid Doppler and MRI. I again told him that I would recommend him to be admitted but he refused. Will start him on aspirin at home along with a statin. I informed he changes his mind or has any other symptoms he is to return. His EKG here showed normal sinus rhythm heart rate [address] elevation QRS 102 QTc 447. Labs showed no significant abnormalities. Medical Records I reviewed the patient's medical records. Lab Data 10/18/25 17:24 10/18/25 17:[address] 10/18/25 17:18 IMPRESSION: 1. No acute intracranial abnormality. ASSESSMENT: ASPECTS ([place] Stroke Program Early CT Score) is 10. ADDENDUM: 10/18/25 7577 The findings were verbally communicated by telephone with Dr. SANTANA at 5:35 PM VEHICLE PAINTER on 10/18/2025. Laboratory Results WBC 8.00 10^3/uL (3.29-11.43) 10/18/25 17: RBC 4.60 10^6/uL (3.85-5.65) 10/18/25 17:24 Hgb 13.40 g/dL (11.27-16.99) 10/18/25 17:24 Hct 41.3 % (37-53) 10/18/25 17:24 MCV 89.8 fl (82-101) 10/18/25 17:24 MCH 29.1 pg (27-33) 10/18/25 17:24 MCHC 32.4 g/dL (30-55) 10/18/25 17:24 RDW 13.3 % (12.1-15.1) 10/18/25 17:24 Plt Count 258 10^3/cmm (157-399) 10/18/25 17:24 MPV 9.7 fL (7.4-10.4) 10/18/25 17: Neut % (Auto) 49.5 % 10/18/25 17:24 Lymph % (Auto) 37.6 % 10/18/25 17:24 [place] % (Auto) 10.3 % 10/18/25 17:24 Eos % (Auto) 1.6 % 10/18/25 17:24 Baso % (Auto) 0.6 % 10/18/25 17:24 Neut # (Auto) 3.96 10^3/uL (1.8-7.7) 10/18/25 17:24 Lymph # (Auto) 3.0 10^3/uL (0.8-4.8) 10/18/25 17:24 [place] # (Auto) 0.8 10^3/uL (0.2-0.9) 10/18/25 17:24 Eos # (Auto) 0.1 10^3/uL (0.0-0.8) 10/18/25 17:24 Baso # (Auto) 0.1 10^3/uL (0.0-0.1) 10/18/25 17:24 Nucleated RBC % (auto) 0 % 10/18/25 17:24 Nucleated RBCs # 0.0 /100WBC 10/18/25 17:24 Sodium 138 mmol/L (136-145) 10/18/25 17:24 Potassium 4.0 mmol/L (3.5-5.1) 10/18/25 17:24 Chloride 103 mmol/L (98-107) 10/18/25 17:24 Carbon Dioxide 27 mmol/L (22-29) 10/18/25 17:24 Anion Gap 12.0 (5-19) 10/18/25 17:24 Glucose 86 mg/dL (65-115) 10/18/25 17:24 POC Glucose 86 mg/dL (70-110) 10/18/25 17:21 Calculated Osmolality 291 mOsm/kg (285-295) 10/18/25 17:24 Calcium 8.9 mg/dL (8.5-10.5) 10/18/25 17:24 Total Bilirubin 0.4 mg/dL (0.15-1.2) 10/18/25 17:24 AST 27 U/L (0-40) 10/18/25 17:24 Alkaline Phosphatase 129 U/L (40-130) 10/18/25 17:24 Total Protein 7.1 g/dL (6.6-8.7) 10/18/25 17:24 Albumin 3.9 g/dL (3.5-5.2) 10/18/25 17:24 Globulin 3.2 g/dL (1.3-4.6) 10/18/25 17:24 Urine Color Yellow (Yellow) 10/18/25 17:38 Urine Appearance Clear (CLEAR) 10/18/25 17:38 Urine pH 5.5 (5-7) 10/18/25 17:38 Ur Specific [place] 1.027 (1.005-1.030) 10/18/25 17:38 Urine Protein Negative (Negative) 10/18/25 17:38 Urine Glucose (UA) Negative (Normal) 10/18/25 17:38 Urine Ketones Trace (Negative) 10/18/25 17:38 Urine Blood Negative (Negative) 10/18/25 17:38 Urine Nitrate Negative (Negative) 10/18/25 17:38 Urine Bilirubin Negative (Negative) 10/18/25 17:38 Urine Urobilinogen 1.0 mg/dL (Negative) 10/18/25 17:38 Ur Leukocyte Esterase Negative (Negative) 10/18/25 17:38 Urine RBC 0-2 /hpf (0-2) 10/18/25 17:38 Urine WBC 0-5 /hpf (0-5) 10/18/25 17:38 Ur Squamous Epith Cells 0-5 /hpf (0-5) 10/18/25 17:38 Amorphous Sediment Not Reportable 10/18/25 17:38 Urine Bacteria None seen /hpf (NONE) 10/18/25 17:38 Hyaline Casts 2.05 /lpf 10/18/25 17:38 Urine Opiates Screen Negative ng/mL (Negative) 10/18/25 17:38 Ur Barbiturates Screen Negative ng/mL (Negative) 10/18/25 17:38 Ur Phencyclidine Scrn Negative ng/mL (Negative) 10/18/25 17:38 Ur Amphetamines Screen Positive ng/mL (Negative) H 10/18/25 17:38 U Benzodiazepines Scrn Negative ng/mL (Negative) 10/18/25 17:38 Urine Cocaine Screen Negative ng/mL (Negative) 10/18/25 17:38 U Marijuana (THC) Screen Positive ng/mL (Negative) H 10/18/25 17:38 All radiology interpretation(s) finalized by discharge EKG Data EKG 1: I personally reviewed and interpreted this EKG as follows: EKG interpretation date: 10/18/25 EKG interpretation time: 17:30 Interpretation: nsr hr [address] elevation qrs 102 qtc 447 Discharge Plan Discharge Patient Disposition: Home Clinical Impression: Brain TIA Condition: Stable Prescriptions: New aspirin 81 mg capsule 81 mg PO DAILY Qty: 30 0RF atorvastatin [Lipitor] 80 mg tablet 80 mg PO DAILY Qty: 30 0RF No Action ibuprofen 200 mg Tablet 1,200 mg PO Q6H PRN (Reason: Pain) hydrocodone-acetaminophen 5-325 mg tablet 1 tab PO Q6H PRN (Reason: pain) Qty: 14 0RF ondansetron 4 mg tablet,disintegrating 4 mg PO Q8H PRN (Reason: nausea and vomiting) Qty: 14 0RF lisinopril 10 mg tablet 10 mg PO DAILY Qty: 30 0RF Discharge Orders: Discharge ED (Routine); Ordered 10/18/25 Ordered By: Oniel Santana Discharge Diet: Advance as tolerated Discharge Activity: Resume usual activity Patient Instructions: Transient Ischemic Attack (ED) Print Language: Cameroonian Coding Level of Care Code ED 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
[2025-10-18 17:37] LABS: Hematocrit 41.3 % (37-53); Hemoglobin 13.40 g/dL (11.27-16.99); Mean Corpuscular HGB Conc 32.4 g/dL (30-55); Mean Corpuscular Hemoglobin 29.1 pg (27-33); Mean Corpuscular Volume 89.8 fl (82-101); Nucleated Red Blood Cells % 0 %; Platelet Count 258 10^3/cmm (157-399); Red Blood Count 4.60 10^6/uL (3.85-5.65); White Blood Count 8.00 10^3/uL (3.29-11.43)
[2025-10-18 17:47] LABS: Glucose Urine UA Negative (Normal); Nitrate Urine Negative (Negative); Specific Gravity, Urine 1.027 (1.005-1.030)
[2025-10-18 17:52] LABS: Add Urine Microscopic? YES
[2025-10-18 17:54] LABS: Albumin Level 3.9 g/dL (3.5-5.2); Alkaline Phosphatase 129 U/L (40-130); Anion Gap 12.0 (5-19); Aspartate Amino Transferase 27 U/L (0-40); Blood Urea Nitrogen 28 mg/dL (6-20); Calcium 8.9 mg/dL (8.5-10.5); Carbon Dioxide 27 mmol/L (22-29); Chloride 103 mmol/L (98-107); Globulin 3.2 g/dL (1.3-4.6); Glucose 86 mg/dL (65-115); Osmolality Calculated 291 mOsm/kg (285-295); Potassium 4.0 mmol/L (3.5-5.1); Sodium 138 mmol/L (136-145); Total Protein 7.1 g/dL (6.6-8.7)
[2025-10-18 17:55] LABS: PCP Screen Urine Negative (Negative)
[2025-10-18 18:05] LABS: Alanine Aminotransferase 21 U/L (0-41)
[2025-10-18 18:06] VITALS: BP 138/86; PULSE 81; RESP 16; O2SAT 96
[2025-10-18 18:37] LABS: INR 0.98 (0.8-1.2); Prothrombin Time 13.70 SECONDS (12.1-14.9)
[2025-10-18 18:39] LABS: Partial Thromboplastin Time 26.0 SECONDS (23.9-36.7)
--- NOTE | 2025-10-21 10:48 | DCPLANNER ---
messaged neuro and [facility] for er f/u & to establish pcp care
== END 2025-10-18 18:04 | disposition home or self-care (01) ==
PROVIDERS: Emergency Provider Emergency Medicine
DX: G45.9 Transient cerebral ischemic attack, unspecified (principal); F17.210 Nicotine dependence, cigarettes, uncomplicated; I10 Essential (primary) hypertension
CPT/HCPCS: 36416; 70450; 71045; 80053; 80306; 81001; 82962; 85025; 85610; 85730; 93005; 99285; J9999